=== PATIENT | female | born 1960 | race Caucasian/White ===

== ENCOUNTER → 2017-03-09 | Outpatient (CLI) | payer MEDICAID, OTHER ==
--- NOTE | 2017-03-09 12:15 | REPMRS ---
Patient History The patient states she has not had a clinical breast exam in over a year. Family history of endometrial cancer in mother at age 48. Digital Mammo Screening Bilat: March 09, 2017 - Exam #: [id number] Bilateral CC and MLO view(s) were taken. Technologist: Liset Sweet Technologist Prior study comparison: 2015, digital bilateral screening mammo, performed at [facility]. FINDINGS: The breast tissue is extremely dense which could obscure a lesion on mammography. There is an extremely dense symmetrical pattern of residual fibroglandular tissue. There has been no change in the appearance of the mammogram from the previous studies. There is no interval development of dominant mass, archetectural distortion, or microcalcific cluster suggestive of malignancy. ASSESSMENT: BI-RADS/ACR category 2 mammogram. Benign finding(s). Recommendation Routine screening mammogram of both breasts in 1 year (for women over age 40). This mammogram was interpreted with the aid of an FDA-approved computer-aided dectection system. Electronically Signed By: Santiago Delgado MD 03/09/17 [id number]
== END ==
LOC: M RAD 10:56
PROVIDERS: ATTEND Family Medicine
DX: Z12.31 Encounter for screening mammogram for malignant neoplasm of breast (principal); R92.8 Other abnormal and inconclusive findings on diagnostic imaging of breast; F17.210 Nicotine dependence, cigarettes, uncomplicated

== ENCOUNTER → 2019-03-25 | Outpatient (CLI) | payer OTHER ==
--- NOTE | 2019-03-28 07:54 | REP ---
Low-dose lung screening chest CT: The study is performed without IV contrast. The images are presented at lung windowing only. Comparisons are 03/11/2017 and 04/07/2018. There are two focal ground-glass densities in the right lung, what along the major fissure on image 50 measuring 14 mm and the other along the minor fissure on image 57 measuring 7 mm. These are unchanged from both prior studies and likely represent chronic parenchymal scarring. There is a new nodular density in the deep posterior sulcus of the right lower lobe on image 80 measuring 6 mm (prior studies. There have been other small areas of increased density in the small in the right deep posterior sulcus is slightly different locations. These are not present on the current study and were likely areas of transient atelectasis. The current density was not present previously. Impression: The new 6 ml nodule in the posterior sulcus of the right lower lobe is a category III lung nodule with the probability of malignancy of 1 - 2%. Follow-up low-dose screening lung CT in 6 months is recommended for further evaluation of this lesion. The two focal chronic ground-glass densities in the right lung are stable and unchanged from both prior studies, likely parenchymal scarring. Electronically Signed by Juan Carlos Hunt MD 03/28/2019 07:45 A
== END ==
LOC: M RAD 16:36
PROVIDERS: ATTEND Physician Assistant
DX: F17.218 Nicotine dependence, cigarettes, with other nicotine-induced disorders (principal); R91.1 Solitary pulmonary nodule

== ENCOUNTER → 2022-04-02 | Outpatient (CLI) | payer OTHER | LOC: M RAD 13:44 | PROVIDERS: ATTEND Family Medicine | DX: Z12.2 Encounter for screening for malignant neoplasm of respiratory organs (principal); F17.210 Nicotine dependence, cigarettes, uncomplicated; J43.9 Emphysema, unspecified; R91.8 Other nonspecific abnormal finding of lung field ==

== ENCOUNTER → 2022-10-22 | Outpatient (CLI) | payer OTHER | LOC: M RAD 12:22 | PROVIDERS: ATTEND Family Medicine | DX: Z12.2 Encounter for screening for malignant neoplasm of respiratory organs (principal); R91.8 Other nonspecific abnormal finding of lung field; J47.9 Bronchiectasis, uncomplicated ==